=== PATIENT | female | born 1950 | race Asian ===

== ENCOUNTER 2024-11-27 12:03 | Emergency (ER) | payer OTHER ==
[~2024-11-27] VITALS: Ht 152.4 cm; Wt 70.6 kg
--- NOTE | 2024-11-27 12:52 | ED.PDOC ---
History of Present Illness HPI Comments 74 year old female presents to the emergency department with a chief complaint of back pain, possible shingles onset 10 days. Patient states she is demonstrating for possible shingles, she had pain and burning on RT upper back. Patient speaks mandarin, poor historian. Spoke with veneer sample maker ID # [id number], vicenta nt states she began experiencing Rt upper back pain 10 days ago, pain improved 2 days ago, began experiencing pain last night, was not able to sleep due to pain. Back pain radiates to RUQ, states pain is constant, described as a burning sensation. No other symptoms or modifying factors present at this time. Denies eye pain, vision loss, floaters, diplopia Denies fevers chills abdominal pain nausea vomiting diarrhea Denies dysuria, hematuria, frequency Denies shortness of breath, chest pain, dizziness, headache Time Seen by MD: 12:40 Reviewed Notes: Medications, Allergies Allergies: Coded Allergies: Penicillins (Verified Allergy, Unknown, 11/27/24) Home Meds Active Scripts Hydrocortisone Base (Hydrocortisone) 2.5 % Oin, 1 APPLIC TOP BID for 7 Days, #30 GRAMS 0 Refills Prov:JEFFY STAFFORD NP 11/27/24 Ibuprofen Micronized (Ibuprofen) 600 Mg Tab, 600 MG PO TID for 10 Days, #30 TAB 0 Refills Prov:JEFFY STAFFORD NP 11/27/24 Valacyclovir HCl (Valacyclovir HCl) 1 Gm Tab, 1 GM PO TID for 10 Days, #30 TAB 0 Refills Prov:JEFFY STAFFORD NP 11/27/24 Information Source: Patient, Relative Mode of Arrival: Ambulatory Severity: Moderate Timing: Days Duration: Since onset Prehospital treatment: None Past Medical History PAST MEDICAL HISTORY: Denies Surgical History: Denies all surgeries FORMAL WEAR RENTAL CLERK History: No Pertinent FORMAL WEAR RENTAL CLERK History Family History Family History: Reviewed,noncontributory to illness, No family hx of Cancer, No family hx of DM, No family hx of Heart lauren, No family hx of HTN, No family hx ofKidney lauren, No family hx of Liver lauren, No family hx of Lung lauren, No family hx of Stroke Social History Smoker: Non-Smoker Alcohol: Denies ETOH Use Drugs: Denies Drug Use Lives In: Home All Other Systems: Reviewed and Negative (as per HPI) Physical Exam General Appearance: Normal HEENT: Normal ENT Inspection, Pharynx Normal, TMs Normal Neck: Full Range of Motion, Non-Tender, Normal, Normal Inspection Respiratory: Chest Non-Tender, Lungs Clear, No Accessory Muscle Use, No Respiratory Distress, Normal Breath Sounds Cardiovascular: No Edema, No JVD, No Murmur, No Gallop, Normal Peripheral Pulses, Regular Rate/Rhythm Breast Exam: Deferred Gastrointestinal: No Organomegaly, Non Tender, No Pulsatile Mass, Normal Bowel Sounds, Soft Genitalia: Deferred Pelvic: Deferred Rectal: Deferred Extremities: No calf tenderness, Normal capillary refill, Normal inspection, Normal range of motion, Non-tender, No pedal edema Musculoskeletal : Location: Right Extremity Location: Back (Old maculopapular rash to the right flank with male with a erythema. TTP.) Apperance: Normal Neurologic: Alert, timber incisor operator II-XII nml as Tested, No Motor Deficits, Normal Affect, Normal Mood, No Sensory Deficits Cerebellar Function: Normal Reflexes: Normal Skin: Dry, Normal Color, Warm Lymphatic: No Adenopathy Was a procedure done? Was a procedure done?: No Differential Dx Considerations may include: shingles, nephrolithiasis, cellulitis, erysipelas X-Ray, Labs, Meds, VS Vital Signs Date Time Temp Pulse Resp B/P (MAP) Pulse Ox O2 Delivery O2 Flow Rate FiO2 11/27/24 13:44 68 16 97 Room Air 11/27/24 13:44 98.7 72 16 118/74 (89) 98 98.7 11/27/24 12:23 98.1 72 16 201/95 (130) 98 98.1 213/99 (137) Lab Test 11/27/24 13:32 11/27/24 12:30 Range/Units White Blood Count 5.6 4.4-10.8 10^3/uL Red Blood Count 4.00 4.0-5.20 10^6/uL Hemoglobin 13.0 12.2-16.2 g/dL Hematocrit 37.8 36.0-46.0 % Mean Corpuscular Volume 94.5 80.0-100.0 fL Mean Corpuscular Hemoglobin 32.5 H 28.0-32.0 pg Mean Corpuscular Hemoglobin Concent 34.4 32.0-36.0 g/dL Red Cell Distribution Width 13.4 11.8-14.3 % Platelet Count 246 140-450 10^3/uL Mean Platelet Volume 8.0 6.9-10.8 fL Neutrophils (%) (Auto) 40.4 37.0-80.0 % Lymphocytes (%) (Auto) 41.6 10.0-50.0 % Monocytes (%) (Auto) 6.7 0.0-12.0 % Eosinophils (%) (Auto) 10.4 H 0.0-7.0 % Basophils (%) (Auto) 0.9 0.0-2.0 % Neutrophils # (Auto) 2.2 1.6-8.6 10 ^3/uL Lymphocytes # (Auto) 2.3 0.4-5.4 10 ^3/uL Monocytes # (Auto) 0.4 0-1.3 10 ^3/uL Eosinophils # (Auto) 0.6 0-0.8 10 ^3/uL Basophils # (Auto) 0.1 0-0.2 10 ^3/uL Nucleated Red Blood Cells 0.0 % Sodium Level 140 136-145 mmol/L Potassium Level 3.8 3.5-5.1 mmol/L Chloride Level 103 98-107 mmol/L Carbon Dioxide Level 27 20-31 mmol/L Anion Gap 10 5-15 Blood Urea Nitrogen 11 9-23 mg/dL Creatinine 0.71 0.550-1.02 mg/dL Glomerular Filtration Rate Calc 89 >90 mL/min BUN/Creatinine Ratio 15.5 10.0-20.0 Serum Glucose 100 74-106 mg/dL Calcium Level 10.4 8.7-10.4 mg/dL Urine Color Light-yellow Yellow Urine Clarity Clear Clear Urine pH 5.0 5.0-9.0 Urine Specific [place] 1.006 1.001-1.035 Urine Protein Negative Negative Urine Ketones Negative Negative Urine Blood 1+ H Negative /uL Urine Nitrite Negative Negative Urine Bilirubin Negative Negative Urine Urobilinogen Normal Negative mg/dL Urine Leukocyte Esterase 3+ Negative /uL Urine RBC 4 0 - 4 /hpf Urine Microscopic WBC 20 H 0-5 /HPF Urine Squamous Epithelial Cells Few <5 /hpf Urine Bacteria Few H None Seen /hpf Urine Glucose Normal Normal mg/dL Current Medications Medications (Trade) Dose Ordered Sig/Caleb Route Start Time Stop Time Status Last Admin Acetaminophen/ Hydrocodone Bitart ([place] 5/325MG Tab) 1 tab ONCE ONCE PO 11/27/24 15:00 11/27/24 15:06 DC 11/27/24 15:00 Methylprednisolone Sodium Succinate (Solu Medrol) 125 mg ONCE ONCE IM 11/27/24 15:00 11/27/24 15:06 DC 11/27/24 15:00 X-Ray, Labs, Meds, VS Comment 74 year old female presents to the emergency department with a chief complaint of back pain, possible shingles onset 10 days. Patient arrives alert and oriented, ABC's intact, afebrile, vital signs stable, saturating well in room air CBC was ordered to exclude anemia, blood loss, or infection. BMP was ordered to exclude electrolyte abnormalities, renal failure, dehyd ration, hyperglycemia CMP was ordered to exclude electrolyte abnormalities, renal failure, dehydration, hyperglycemia and/or liver enzyme abnormalities. PT and INR were ordered to rule out coagulopathy. Troponin and BNP were ordered to rule out myocardial infarction, or congestive heart failure. Urinalysis was ordered to rule out UTI or hematuria. Diagnostic imaging ordered by me and results interpreted by radiology: 1. Cardiomegaly and coronary artery disease. 2. Bilateral nonobstructing nephrolithiasis. No evidence of urinary tract obstruction bilaterally. 3. Fecal retention in the ascending and transverse colon which may indicate constipation. 4. No evidence of bowel obstruction, acute appendicitis, or other acute process in the abdomen or pelvis. Patient is stable for discharge at this time. External notes reviewed. Test results and diagnostic imaging interpreted. All diagnostic findings, discharge care, education and instructions provided Follow-up with PCP in 2 to 3 days Medications Rx Patient verbalized understanding and agreed to treatment plan Vital signs stable, afebrile, no acute distress noted Patient ambulatory with strong steady gait Advised to return precautions for any new or worsening symptoms, return to ER im mediately for re-evaluation Patient is aware that the purpose of this visit was for an acute medical emergency requiring emergent stabilization. Chronic conditions, including malignancies have not been ruled out. Patient is instructed to follow up with PCP as directed and discharge instructions for continued care and workup. If unable to arrange follow-up, patient is to return to the emergency department for reassessment. Patient (parent or legal guardian if applicable) was given verbal and written discharge instructions and acknowledges understanding. Additional MDM Review of External, Non-ED records: External records reviewed. Discussion with independent historian (EMS, family) history obtained from the patient/parents (if applicable) at bedside Chronic conditions affecting care: None Social determinants of health affecting care: None I considered escalation of care to admission for this patient, however given the reassuring workup, the patient is safe for outpatient management. Time of 1ST Reevaluation: 14:10 Reevaluation 1ST: Improved Patient Education/Counseling: Diagnosis, Treatment Family Education/Counseling: No Family Present SEPSIS Sepsis Screen Physician Orders Ct Ab Pel Wo Con-No Oral Or Iv (11/27/24 14:09) Vital Signs Date Time Temp Pulse Resp B/P (MAP) Pulse Ox O2 Delivery O2 Flow Rate FiO2 11/27/24 13:44 68 16 97 Room Air 11/27/24 13:44 98.7 72 16 118/74 (89) 98 98.7 11/27/24 12:23 98.1 72 16 201/95 (130) 98 98.1 213/99 (137) Laboratory Tests Test 11/27/24 13:32 White Blood Count 5.6 10^3/uL (4.4-10.8) Departure 1 Departure Time of Disposition: 14:48 Impression: Primary Impression: Shingles Qualified Codes: B02.9 - Zoster without complications Additional Impression: Bilateral nephrolithiasis Disposition: 01 HOME / SELF CARE / HOMELESS Condition: Fair e-Prescriptions Hydrocortisone Base (Hydrocortisone) 2.5 % Oin 1 APPLIC TOP BID for 7 Days, #30 GRAMS 0 Refills Prov: JEFFY STAFFORD NP 11/27/24 Ibuprofen Micronized (Ibuprofen) 600 Mg Tab 600 MG PO TID for 10 Days, #30 TAB 0 Refills Prov: JEFFY STAFFORD NP 11/27/24 Valacyclovir HCl (Valacyclovir HCl) 1 Gm Tab 1 GM PO TID for 10 Days, #30 TAB 0 Refills Prov: JEFFY STAFFORD FLUSH TESTER 11/27/24 Critical Care Note Critical Care Time?: No Stability Stability form required: No Heart Score Heart Score: Heart Score Response (Comments) Value History N/A 0 EKG N/A 0 Age N/A 0 Risk Factors N/A 0 Troponin N/A 0 Total 0 I personally scribed for JEFFY STAFFORD NP ([email or web address]) on 11/27/24 at 12:52. Electronically submitted by June Armstrong ([email or web address]). I personally scribed for JEFFY STAFFORD FLUSH TESTER ([email or web address]) on 11/27/24 at 13:25. Electronically submitted by June Armstrong ([email or web address]). I personally scribed for JEFFY STAFFORD FLUSH TESTER ([email or web address]) on 11/27/24 at 13:28. Electronically submitted by June Armstrong ([email or web address]). JEFFY STAFFORD NP Nov 27, 2024 12:52
[2024-11-27 13:21] LABS: Urine Protein, UAD Negative (Negative)
[2024-11-27 13:44] VITALS: BP 118/74; PULSE 68; RESP 16; TEMP 98.7; O2SAT 97
[2024-11-27 13:49] LABS: Hematocrit 37.8 % (36.0-46.0); Hemoglobin 13.0 g/dL (12.2-16.2); Mean Corpuscular Hemoglobin 32.5 pg (28.0-32.0); Mean Corpuscular Volume 94.5 fL (80.0-100.0); Nucleated Red Blood Cells % 0.0 %
[2024-11-27 13:57] LABS: Chloride 103 mmol/L (98-107); Potassium 3.8 mmol/L (3.5-5.1); Sodium 140 mmol/L (136-145)
[2024-11-27 13:58] LABS: Anion Gap 10 (5-15); Carbon Dioxide 27 mmol/L (20-31)
[2024-11-27 14:03] LABS: BUN/Creatinine Ratio 15.5 (10.0-20.0); Blood Urea Nitrogen 11 mg/dL (9-23); Glucose 100 mg/dL (74-106)
[2024-11-27 14:04] LABS: Calcium 10.4 mg/dL (8.7-10.4)
--- NOTE | 2024-11-27 14:41 | DVH ---
EXAM: CT CT AB PEL WO CON-NO ORAL OR IV HISTORY: R flank pain COMPARISON: None TECHNIQUE: Helical CT images of the abdomen and pelvis were performed without IV contrast. Sagittal a nd coronal reformatted images were obtained. This CT exam was performed using one or more of the foll owing dose reduction techniques: Automated exposure control, adjustment of the mA and/or kv according to patient size, or the use of iterative reconstruction techniques. Radiation Dose: Abdomen/Pelvis: CTDIvol 5.07 mGy, DLP 262.01 mGy*cm. FINDINGS: CT abdomen: The lung bases are clear. The heart is enlarged. There are coronary artery calcifications . There are multiple cysts and/or hamartomas in the liver. There are bilateral nonobstructing renal c alculi. The noncontrast liver, spleen, gallbladder, pancreas, and adrenal glands are unremarkable. No abdominal aortic aneurysm. There are atherosclerotic calcifications of the abdominal aorta and major branches. CT pelvis: No abnormal bowel dilatation, free air, or free fluid. There is fecal retention in the asc ending colon and transverse colon. The appendix contains an appendicolith and is not appear dilated o r inflamed. The urinary bladder uterus are unremarkable. There is mild lumbar degenerative disc dise ase and advanced facet arthropathy. IMPRESSION: 1. Cardiomegaly and coronary artery disease. 2. Bilateral nonobstructing nephrolithiasis. No evidence of urinary tract obstruction bilaterally. 3. Fecal retention in the ascending and transverse colon which may indicate constipation. 4. No evidence of bowel obstruction, acute appendicitis, or other acute process in the abdomen or pel vis.
[2024-11-27] MEDS ORDERED: HYDR2.5O TOP (14:51)
[2024-11-27] MEDS ORDERED: VALA1TAB34 PO (14:51)
[2024-11-27] MEDS ORDERED: IBUP1TAB5 PO (14:51)
[2024-11-27] MEDS: methylPREDNISolone SOD SUCC 125 MG/2 ML VL IM ONE (15:00)
[2024-11-27] MEDS: HYDROcodone-ACET 5/325MG TAB PO ONE (15:00)
== END 2024-11-27 15:35 | disposition home or self-care (01) ==
LOC: ER 12:03
DX: B02.9 Zoster without complications (principal); R10.11 Right upper quadrant pain; N20.0 Calculus of kidney; Z88.0 Allergy status to penicillin
CPT/HCPCS: 36415; 74176; 80048; 81001; 85025; 96372; 99285; J2919